=== PATIENT | male | born 1970 | race Caucasian/White ===

== ENCOUNTER → 2017-07-30 | Outpatient (CLI) | payer OTHER ==
[~2017-07-30] MED LIST: ANTIDEPRESSANT; AVELOX400 MG PO; B/P MED; FIORICET 50-321 EACH PO; MULTIVITAMINS; NAPROSYN500 MG PO
== END ==
LOC: ULTRA 07:45
DX: R10.10 Upper abdominal pain, unspecified (principal); R19.7 Diarrhea, unspecified

== ENCOUNTER → 2019-06-11 | Outpatient (CLI) | payer OTHER | LOC: CAT 12:41 | DX: Z13.6 Encounter for screening for cardiovascular disorders (principal); I25.10 Atherosclerotic heart disease of native coronary artery without angina pectoris; E78.00 Pure hypercholesterolemia, unspecified ==

== ENCOUNTER → 2019-06-24 | Outpatient (CLI) | payer OTHER | LOC: CAT 14:44 | DX: R91.1 Solitary pulmonary nodule (principal); J84.10 Pulmonary fibrosis, unspecified; I25.10 Atherosclerotic heart disease of native coronary artery without angina pectoris ==

== ENCOUNTER → 2019-07-02 | Outpatient (CLI) | payer OTHER ==
[~2019-07-02] MED LIST changes: +ASPIR 8181 MG PO; +CARTIA XT240 M1 PO; +CRESTOR10 MG PO; +EFFIENT10 MG PO; +LISINOPRIL2.5 MG PO; +METFORMIN HCL500 M3 PO; +PRILOSEC OTC20 MG PO
== END ==
LOC: SJCVCIMAG 07:59
DX: I25.10 Atherosclerotic heart disease of native coronary artery without angina pectoris (principal); I10 Essential (primary) hypertension; E78.00 Pure hypercholesterolemia, unspecified; F17.210 Nicotine dependence, cigarettes, uncomplicated; Z79.84 Long term (current) use of oral hypoglycemic drugs

== ENCOUNTER 2019-07-08 07:58 | Outpatient (CLI) | payer OTHER ==
[~2019-07-08] VITALS: Ht 185.4 cm; Wt 137.0 kg
[~2019-07-08 07:58] MED LIST changes: -ASPIR 8181 MG PO; -CARTIA XT240 M1 PO; -CRESTOR10 MG PO; -EFFIENT10 MG PO; -LISINOPRIL2.5 MG PO; -METFORMIN HCL500 M3 PO; -PRILOSEC OTC20 MG PO
[2019-07-08 08:42] VITALS: BP 125/77
[2019-07-08 08:45] LABS: HEMATOCRIT 34.6 % (42.0-52.0); HEMOGLOBIN 10.3 gm/dL (14.0-18.0); MCH 19.7 pg (26.0-34.0); MCHC 29.9 g/dL (28.0-37.0); MCV 65.8 fL (80.0-100.0); RBC 5.25 mil/uL (4.50-6.00); RDW 19.3 % (10.5-14.5); WBC 9.8 thou/uL (4.0-11.0)
[2019-07-08 08:49] LABS: CREATININE 0.7 mg/dL (0.7-1.3); POTASSIUM 3.5 mmol/L (3.5-5.1)
[2019-07-08] MEDS ORDERED: PRILOSEC OTC20 MG PO (08:55)
[2019-07-08] MEDS ORDERED: CRESTOR10 MG PO (08:55)
[2019-07-08] MEDS ORDERED: METFORMIN HCL500 M3 PO (08:56)
[2019-07-08] MEDS ORDERED: LISINOPRIL2.5 MG PO (08:56)
[2019-07-08] MEDS ORDERED: CARTIA XT240 M1 PO (08:56)
--- NOTE | 2019-07-08 15:42 | CATHLAB ---
[facility] [address] [address] INVASIVE PROCEDURE REPORT Name: YUMIKO WILCOX Room #: REG MOOSE Loco.#: [id number] Admission: 07/08/19 Attend Phys: Franky Lora MD Discharge: Date of : 70 Report #: [id number] THIS REPORT FOR: cc: Wesley Singh Steven F. DO Park, Jin S. MD ~ APPROVED REPORT Study performed: 07/08/2019 09:15:59 Patient Details Patient Status: Out-Patient Room #: The patient is a 49 year-old male Event Personnel Franky Lora Rn Outpatient Surgery, Barb Lehman RTR, RELATIONS SPECIALIST Monitor, Katherine Kirkland RN RN, Dianne Vigil RTR Scrub Procedures Performed Art Access - R radial artery Left Heart Cath w/or w/o Coronaries [id number] [facility] Place w/wo Plasty Single LAD 112079 71384 Initial Mod Sed Same Phys/QHP Gr5y 444037 51477 Mod Sed Same Phys/QHP Ea 994438 Hemostasis with Hemoband Indication Dyspnea, Positive stress test, Chest pain Risk Factors Family History, Hypercholesterolemia, Coronary Artery DiseaseHypertension, Diabetes Tobacco History () Procedure Narrative The Right Wrist^ was infiltrated with 1% Lidocaine subcutaneous anesthesia. A 6F transradial slender sheath was inserted into the Right Radial Artery^. Coronary angiography was performed using coronary diagnostic catheters. The right coronary system was accessed and visualized with a JR4 catheter. The left coronary system was accessed and visualized with a JL3.5 catheter. Left ventricular/Aortic Valve gradient assessed via catheter pullback. There was no hematoma. Vascband used for hemostasis. Intraoperative Conscious Sedation Sedation start time: 09:33 Case end Time: 10:45 [facility] [place] [address] INVASIVE PROCEDURE REPORT Name: YUMIKO WILCOX Room #: REG [facility]#: [id number] Admission: 07/08/19 Attend Phys: Franky Lora MD Discharge: Date of : 70 Report #: [id number] Fentanyl 100 mcg Versed 2 mg Fluoro Time: 20.30 minutes Dose: DAP 40773.00 cGycm2 5388 mGy Contrast Type and Amount: Omnipaque 325 ml Coronary Angiography The patient's coronary anatomy is right dominant. Diagnostic Cath Left Main Left main artery is a large-caliber vessel, patent with no flow-limiting lesions. LAD The LAD is a moderate to large caliber vessel, traversing the anterior wall and wraps around the apex. There is a severe, discrete stenosis in the proximal segment, 80%. There is mild diffuse disease in the mid segment. Diagonal 1 This is a small-caliber vessel, patent with no flow-limiting lesions. Diagonal 2 This is a small to moderate size caliber vessel, with no flow-limiting lesions. Circumflex The left circumflex artery supplies one obtuse marginal artery. OM1 This is a moderate size caliber vessel, with mild disease in the proximal segment. This artery supplies multiple branches as it travels down the inferolateral wall. Right Coronary The RCA is a dominant vessel, with mild disease proximally, 30%. R PDA This is a moderate size caliber vessel, patent with no flow-limiting lesions. RPLV This is a small-caliber vessel, patent with no flow-limiting lesions. Left Ventriculography Left Ventriculography was not performed. Ejection Fraction was 55-60% based off patient's Nuclear Cardiac Stress Test. An LVEDP was measured and there is no gradient across the outflow tract. Hemodynamics The aortic pressure is 130/89 mmHg with a mean of 105 mmHg. The left ventricular pressure is 134/7 mmHg with a mean of mmHg. The left ventricular end diastolic pressure is 21 mmHg. PCI Technique Lesion Percutaneous coronary intervention was performed on the proximal left anterior descending artery segment. The lesion stenosis prior to [facility] [address] [place] [address] INVASIVE PROCEDURE REPORT Name: YUMIKO WILCOX Room #: REG [facility]#: [id number] Admission: 07/08/19 Attend Phys: Franky Lora MD Discharge: Date of : 70 Report #: [id number] intervention was 80% with MARGOTH 3 flow. A VISTA 6FR XB 3 #[id number] Guide Catheter was used to engage the ostium. A Luge Wire .014 x 182CM #[id number] Interventional Guidewire was used to cross the lesion. BALLOON DILATION A Balloon catheter Euphora RX 2.5 x 10 #[id number] was inserted and inflated up to 10.00atm for 10seconds. STENT DEPLOYMENT A drug-eluting stent XIENCE EBONIE RX 3.25 X 12 #[id number] was inserted and inflated up to 18.00atm for 24seconds. POST STENT DEPLOYMENT BALLOON DILATION A Balloon catheter Euphora NC RX 3.5 x 8 #[id number] was inserted and inflated up to 18.00atm for 23seconds. Additional Inflation: 18.00atm for 11seconds. Additional Inflation: 18.00atm for 11seconds. A second balloon catheter Euphora NC RX 4.0 x 8 was inserted and inflated up to 16 georgina for 33 seconds. Additional inflation: 16 georgina for 16 seconds. Final angiography reveals 5 % stenosis with MARGOTH 3 flow. Conclusion 1. Successful insertion of a drug-eluting stent into the proximal LAD segment. 2. There is mild disease in OM1 and RCA. 3. Normal LV systolic function. 4. Recommend dual antiplatelet therapy and aggressive risk factor management. <ELECTRONICALLY SIGNED> By: Franky Lora MD 07/08/19 154 40 40 Franky Lora MD /INF
[2019-07-08 16:20] VITALS: BP 152/87
--- NOTE | 2019-07-08 16:56 | EKG ---
[facility] [place] [address] ELECTROCARDIOGRAM REPORT Name: YUMIKO WILCOX Room #: 207-P [facility] M.R.#: [id number] Admission: 07/08/19 Attend Phys: Franky Lora MD Discharge: Date of : 70 Report #: [id number] THIS REPORT FOR: cc: Wesley Singh Steven F. DO Couchonnal, Luis F. MD ~ THIS REPORT FOR: //name// [facility] Test Date: 2019-07-08 Test Time: 08:40:54 Pat Name: YUMIKO WILCOX Department: Room: Gender: Recruiter Specialist: Abena LAUREANO : 1970 Requested By: Franky Lora Order Number: [id number] MD: Juan C Lu Measurements Intervals [place] Rate: 84 P: 8 NC: 210 QRS: -33 QRSD: 112 T: 28 QT: 401 QTc: 475 Interpretive Statements Sinus rhythm Prolonged NC interval Probable left atrial enlargement Borderline IVCD with LAD Abnormal R-wave progression, late transition Inferior infarct, old Compared to ECG 11/29/2008 23:32:51 Electronically Signed On 07-08-2019 16:55:22 REGISTERED CLINICAL DIETITIAN by Juan C Lu [email or web address] <ELECTRONICALLY SIGNED> By: Juan C Lu MD 07/08/19 1655 9 9 Juan C Lu MD /EPI
--- NOTE | 2019-07-08 17:03 | EKG ---
[facility] [place] [address] ELECTROCARDIOGRAM REPORT Name: YUMIKO WILCOX Room #: 207-P [facility] M.R.#: [id number] Admission: 07/08/19 Attend Phys: Franky Lora MD Discharge: Date of : 70 Report #: [id number] THIS REPORT FOR: cc: Wesley Singh Steven F. DO Couchonnal, Luis F. MD ~ THIS REPORT FOR: //name// [facility] Test Date: 2019-07-08 Test Time: 12:06:47 Pat Name: YUMIKO WILCOX Department: Room: Gender: Guide Escort: Abena LAUREANO : 1970 Requested By: Franky Lora Order Number: [id number] MD: Juan C Lu Measurements Intervals [place] Rate: 84 P: 12 IN: 195 QRS: -26 QRSD: 116 T: 23 QT: 417 QTc: 493 Interpretive Statements Sinus rhythm Probable left atrial enlargement Nonspecific intraventricular conduction delay Inferior infarct, old Compared to ECG 11/29/2008 23:32:51 Intraventricular conduction delay now present Sinus tachycardia no longer present Myocardial infarct finding still present Electronically Signed On 07-08-2019 17:02:08 SUPERVISOR CD AREA by Juan C Lu [email or web address] <ELECTRONICALLY SIGNED> By: Juan C Lu MD 07/08/19 1702 1206 1206 Juan C Lu MD /EPI
--- NOTE | 2019-07-08 17:25 | NUR ---
NEW ADMIT FROM CARDIAC LEAD ASSEMBLER WITH STENT PLACEMENT TO LAD. RIGHT WRIST INCERSION SITE C/D/I. POST CARDIAC INTERVENTIONS COMPLETED IN LEAD ASSEMBLER. VS WNL, DENIES CHEST PAIN, DENIES SOA, RIGHT LEG IMOBOLIZER IN PLACE FROM RECNET RIGHT FX TO LE.MANAGE PAIN OF RIGHT LEG WITH PRN MEDICATIONS. UP WITH STAND BY. WILL LIKELY DC HOME IN [facility]. ADMISSION ASSESMENT AND HISTORY COMPLETED. CALL LIGHT IN REACH. FAMILY BEDSIDE AT THIS TIME.
[2019-07-08 21:46] VITALS: BP 142/72
[2019-07-09 00:15] VITALS: BP 145/96
[2019-07-09 04:31] VITALS: BP 179/99
--- NOTE | 2019-07-09 05:19 | NUR ---
ASSUMED PT CARE AT 1900. PT IS ALERT AND ORIENTED WITN NO SIGN OF DISTRESS NOTED IN PT. RADIAL SITE FROM CATH IS INTACT WITH NO SIGN OF HEMATOMA, BRUISING OR BLEEDING. PT VERBALIZES PAIN AT ANKLE FRACTURE SITE. PAIN MED ADMINISTERED. CONTINUE TO MONITOR PATIENT. DENIES ANY NEEDS AT THIS TIME.
[2019-07-09 05:39] LABS: HEMATOCRIT 32.9 % (42.0-52.0); HEMOGLOBIN 9.9 gm/dL (14.0-18.0); MCH 19.7 pg (26.0-34.0); MCV 65.7 fL (80.0-100.0); RBC 5.01 mil/uL (4.50-6.00); RDW 19.6 % (10.5-14.5); WBC 9.9 thou/uL (4.0-11.0)
[2019-07-09 06:10] LABS: ALBUMIN 3.2 g/dL (3.4-5.0); CALCIUM 8.6 mg/dL (8.5-10.1); CREATININE 0.8 mg/dL (0.7-1.3); POTASSIUM 3.7 mmol/L (3.5-5.1); TOTAL BILIRUBIN 0.4 mg/dL (<0.1-1.0); TOTAL PROTEIN 7.3 g/dL (6.4-8.2)
[2019-07-09 07:30] VITALS: BP 153/99
[2019-07-09] MEDS ORDERED: ASPIR 8181 MG PO (08:15)
[2019-07-09] MEDS ORDERED: EFFIENT10 MG PO (08:15)
[2019-07-09 08:20] LABS: % SATURATION 5 % (20-39); IRON 21 ug/dL (65-175); TIBC 386 ug/dL (250-450)
--- NOTE | 2019-07-09 08:25 | EKG ---
[facility] [place] [address] ELECTROCARDIOGRAM REPORT Name: YUMIKO WILCOX Room #: 207-P [facility] M.R.#: [id number] Admission: 07/08/19 Attend Phys: Franky Lora MD Discharge: Date of : 70 Report #: [id number] THIS REPORT FOR: cc: Wesley Singh Steven F. DO Couchonnal, Luis F. MD ~ THIS REPORT FOR: //name// [facility] Test Date: 2019-07-09 Test Time: 07:18:36 Pat Name: YUMIKO WILCOX Department: Room: 207 Gender: M Remarketing Manager: Tessa MOSQUEDA : 1970 Requested By: Franky Lora Order Number: [id number] MD: Juan C Lu Measurements Intervals [place] Rate: 83 P: 23 CA: 188 QRS: -33 QRSD: 121 T: 40 QT: 412 QTc: 485 Interpretive Statements Sinus rhythm Ventricular premature complex Nonspecific intraventricular conduction delay Compared to ECG 07/08/2019 12:06:47 Ventricular premature complex(es) now present Myocardial infarct finding no longer present Electronically Signed On 07-09-2019 8:24:39 HAIR CUTTER by Juan C Lu [email or web address] <ELECTRONICALLY SIGNED> By: Juan C Lu MD 07/09/19823 7 7 Juan C Lu MD /EPI
[2019-07-09 09:41] VITALS: BP 153/89
[2019-07-09 10:16] VITALS: BP 156/88
--- NOTE | 2019-07-09 10:17 | NUR ---
ASSUMED CARE AT SHIFT CHANGE, ALERT AND ORIENTED X4. DENIES CP, AND C/O LLE PAIN AT 2/10. SCHEDULED MEDS GIVEN, AND ASSESSMENT DOCUMENTED. DISCHAGE AND MEDICATION INSTRUCTIONS GIVEN TO PATIENT AND PATIENT DISCHARGED HOME.
== END 2019-07-09 10:20 | disposition home or self-care (01) ==
LOC: CATH 07:58 → 2N 15:53 → CATH 16:44 → ENTRNSPT 07-09 10:05 → EDTRNSPTSTS 07-09 10:08 → CATH 07-09 10:20
PROVIDERS: Internal Medicine Cardiovascular Disease
DX: R07.9 Chest pain, unspecified (principal); I25.110 Atherosclerotic heart disease of native coronary artery with unstable angina pectoris; I10 Essential (primary) hypertension; E11.9 Type 2 diabetes mellitus without complications; E78.00 Pure hypercholesterolemia, unspecified; G47.30 Sleep apnea, unspecified; F17.210 Nicotine dependence, cigarettes, uncomplicated; E66.09 Other obesity due to excess calories; Z98.890 Other specified postprocedural states; Z79.899 Other long term (current) drug therapy
CPT/HCPCS: 10081

== ENCOUNTER → 2020-01-27 | Outpatient (CLI) | payer OTHER ==
[~2020-01-27] MED LIST changes: +ASPIR 8181 MG PO; +CARTIA XT240 M1 PO; +CRESTOR10 MG PO; +EFFIENT10 MG PO; +LISINOPRIL2.5 MG PO; +METFORMIN HCL500 M3 PO; +PRILOSEC OTC20 MG PO
== END ==
LOC: SJCVCIMAG 01-23 10:31
PROVIDERS: ATTEND Internal Medicine Cardiovascular Disease
DX: I34.0 Nonrheumatic mitral (valve) insufficiency (principal); I25.10 Atherosclerotic heart disease of native coronary artery without angina pectoris; I51.7 Cardiomegaly; E78.2 Mixed hyperlipidemia; Z87.891 Personal history of nicotine dependence

== ENCOUNTER → 2020-02-04 | Outpatient (CLI) | payer OTHER | END | disposition home or self-care (01) | LOC: GI 07:08 | PROVIDERS: ATTEND Specialist | DX: D64.9 Anemia, unspecified (principal); K29.70 Gastritis, unspecified, without bleeding; Z98.890 Other specified postprocedural states; Z79.899 Other long term (current) drug therapy; Z20.828 Contact with and (suspected) exposure to other viral communicable diseases ==

== ENCOUNTER → 2020-08-16 | Outpatient (CLI) | payer OTHER | LOC: CAT 07-27 14:07 | PROVIDERS: ATTEND Neuromusculoskeletal Medicine & OMM | DX: R91.8 Other nonspecific abnormal finding of lung field (principal) ==